=== PATIENT | male | born 1965 | race African-American/Black ===

== ENCOUNTER 2019-02-20 04:38 | Emergency (ER) | payer OTHER ==
[~2019-02-20] VITALS: Ht 172.7 cm; Wt 86.2 kg
[2019-02-20 04:45] VITALS: Ht 172.7 cm; Wt 86.2 kg
[2019-02-20 05:18] VITALS: BP 147/99
== END 2019-02-20 05:18 | disposition home or self-care (01) ==
LOC: ED 04:38
DX: J45.909 Unspecified asthma, uncomplicated (principal); Z88.2 Allergy status to sulfonamides